=== PATIENT | female | born 1985 | race African-American/Black ===

== ENCOUNTER 2021-04-27 04:34 | Day surgery (SDC) | payer OTHER ==
[2021-04-26 15:38] VITALS: BMI 29.0
[2021-04-27] MEDS ORDERED: BUPIVACAINE LIPOSOME/PF (EXPAREL) 266 MG/20 ML VIAL ONE (10:22)
[2021-04-27] MEDS ORDERED: BUPIVACAINE HCL/PF 0.5% (5MG/ML) 10 ML VIAL ONE ×2 (10:22→11:05)
[2021-04-27] MEDS ORDERED: MIDAZOLAM HCL 2 MG/2 ML SINGLE DOSE VIAL ONE ×2 (10:23)
[2021-04-27] MEDS ORDERED: LIDOCAINE HCL 1%, 10 MG/ML (20ML VIAL) ONE (11:06)
[2021-04-27] MEDS ORDERED: ROCURONIUM BROMIDE 50 MG/5 ML SYRINGE ONE (11:09)
[2021-04-27] MEDS ORDERED: PROPOFOL 20 ML ONE ×2 (11:09)
[2021-04-27] MEDS ORDERED: ceFAZolin 2 GRAM PREMIX BAG IVPB ONE (11:12)
[2021-04-27] MEDS ORDERED: ceFAZolin SODIUM 1 GM VIAL ONE (11:18)
[2021-04-27] MEDS ORDERED: DEXAMETHASONE SOD PHOSPHATE 4 MG/1 ML VIAL ONE (11:19)
[2021-04-27] MEDS ORDERED: NEOSTIGMINE METHYLSULFATE 0.5 MG/ML - 10 ML MDV ONE (11:43)
[2021-04-27] MEDS ORDERED: GLYCOPYRROLATE 0.2 MG/1 ML VIAL ONE (11:43)
[2021-04-27] MEDS ORDERED: KETOROLAC TROMETHAMINE 30 MG/1 ML VIAL ONE (12:44)
[2021-04-27] MEDS ORDERED: KETOROLAC TROMETHAMINE 30 MG/1 ML VIAL IVPUSH ONE (13:00)
[2021-04-27 17:39] VITALS: BP 136/79; PULSE 80; TEMP 97.4
== END 2021-04-27 15:15 | disposition home or self-care (01) ==
LOC: JASU-SURG 04:34
PROVIDERS: ATTEND Surgery
PROC: 0WUF0JZ Supplement Abdominal Wall with Synthetic Substitute, Open Approach (ICD-10-PCS; principal; 2021-04-27 11:00)
DX: K43.2 Incisional hernia without obstruction or gangrene (principal)
CPT/HCPCS: 81025; 94760